=== PATIENT | female | born 1980 ===

== ENCOUNTER 2023-05-11 13:25 | Inpatient (IN) | payer SELFPAY ==
[~2023-05-11] VITALS: Ht 144.8 cm; Wt 38.6 kg
[2023-05-11 13:58] LABS: HEMOGLOBIN 11.3 g/dl (12.5-16.0); MEAN CELL VOLUME 89 fl (80.0-100.0); MEAN CORPUSCULAR HEMOGLOBIN 29 pg (27-31); MEAN CORPUSCULAR HGB CONC 33 g/dl (33.0-37.0); MEAN PLATELET VOLUME 10.2 fl (7.4-10.4); PLATELET COUNT 143 K/mm3 (130-400); RED BLOOD COUNT 3.88 M/mm3 (4.10-5.30); REDCELL DISTRIBUTION WIDTH-CV 12.3 % (11.5-14.5)
[2023-05-11 14:04] LABS: HEMATOCRIT 34.4 % (37.0-47.0)
[2023-05-11 14:16] LABS: ALANINE AMINOTRANSFERASE 32 U/L (0-55); ALKALINE PHOSPHATASE 51 U/L (40-150); ANION GAP 15 mmol/L (7-16); AST,SGOT 79 U/L (5-34); BILIRUBIN,TOTAL 0.6 mg/dL (0.2-1.2); BLOOD UREA NITROGEN 13 mg/dL (7-19); C-REACTIVE PROTEIN 0.72 mg/dL (0.00-0.50); CALCIUM 8.6 mg/dL (8.4-10.2); CARBON DIOXIDE 17 mmol/L (22-29); CHLORIDE 99 mmol/L (98-107); CREATININE, serum 0.92 mg/dL (0.57-1.11); GLUCOSE 108 mg/dL (70-99); LIPASE 72 U/L (8-78); SODIUM 131 mmol/L (136-145); TOTAL PROTEIN 7.6 gm/dL (6.2-8.1)
[2023-05-11 14:21] LABS: BAND 14 % (0-10); LYMPHOCYTE 28 % (20.0-51.0); NEUTROPHILS 50 % (42.0-75.2)
[2023-05-11 14:22] LABS: HYPOCHROMIA 1+; PLATELET ESTIMATE NORMAL (NORMAL)
[2023-05-11 14:24] LABS: TROPONIN-I < 0.010 ng/mL (0.00-0.033)
[2023-05-11 14:53] LABS: COLLECTION METHOD CLEAN CATCH
[2023-05-11 15:09] LABS: URINE APPEARANCE Cloudy (CLEAR/HAZY); URINE BLOOD 3+ (NEGATIVE); URINE COLOR Red (YELLOW); URINE GLUCOSE Negative (NEGATIVE); URINE KETONE 1+ (NEGATIVE); URINE NITRATE Negative (NEGATIVE); URINE PROTEIN(semi-quant) 2+ (NEGATIVE); URINE UROBILINOGEN 0.2 E.U/dL (0.2-1.0)
[2023-05-11 15:10] LABS: MUCOUS Present (NOT PRESENT); URINE BACTERIA Moderate /hpf (NONE SEEN); URINE RBC >50 /hpf (0-2)
[2023-05-11] MEDS ORDERED: AMOXICILLIN 8751 TAB PO (15:42)
[2023-05-11 15:54] LABS: TRICYCLIC ANTIDEPRESS URINE NEGATIVE
[2023-05-11 17:56] LABS: MONOSCREEN NEGATIVE
[2023-05-11 18:00] VITALS: BP_SYST 94
[2023-05-11 18:10] VITALS: BP 94/59; PULSE 67; TEMP 97.5
--- NOTE | 2023-05-11 18:26 | NUR ---
Patient arrived to te medical unit alert and oriented x 4, sof BP 90's, getting fluids per orders. States she has dry throat and chills. Assessment intake completed.
[2023-05-11 20:51] VITALS: BP 90/60; PULSE 78; TEMP 98.2
[2023-05-11 21:00] VITALS: BP_SYST 90
[2023-05-12] VITALS (12 sets, daily range): BP systolic 90–98; BP diastolic 53–61; PULSE 71–93; TEMP 97.8–101.4
[2023-05-12 08:11] LABS: ALBUMIN 1.9 gm/dL (3.5-5.0); BILIRUBIN,TOTAL 0.5 mg/dL (0.2-1.2); CALCIUM 7.5 mg/dL (8.4-10.2); CREATININE, serum 0.67 mg/dL (0.57-1.11); MEAN CELL VOLUME 88 fl (80.0-100.0); MEAN CORPUSCULAR HGB CONC 33 g/dl (33.0-37.0); MEAN PLATELET VOLUME 10.4 fl (7.4-10.4); PLATELET COUNT 105 K/mm3 (130-400); POTASSIUM 3.7 mmol/L (3.5-4.5); RED BLOOD COUNT 2.86 M/mm3 (4.10-5.30); REDCELL DISTRIBUTION WIDTH-CV 12.4 % (11.5-14.5)
[2023-05-12 08:15] LABS: HEMATOCRIT 25.2 % (37.0-47.0); HEMOGLOBIN 8.3 g/dl (12.5-16.0); MEAN CORPUSCULAR HEMOGLOBIN 29 pg (27-31)
[2023-05-12 08:40] LABS: BAND 17 % (0-10); LYMPHOCYTE 37 % (20.0-51.0); NEUTROPHILS 42 % (42.0-75.2)
[2023-05-12 08:41] LABS: HYPOCHROMIA 1+; PLATELET ESTIMATE DECREASED (NORMAL)
[2023-05-12 09:29] LABS: RETIC # 0.01 M/mm3 (0.02-0.16); RETIC % 0.4 % (0.5-3.52)
[2023-05-12 10:26] LABS: HIV 1/2 Antibodies Non-Reactive; HIV-1p24 Antigen Non-Reactive
--- NOTE | 2023-05-12 11:35 | NUR ---
Patient is resting in bed, state she feels the same. Continues getting antibiotics and fluids per orders. Assessment completed, no further needs at this time. Call light within reach.
--- NOTE | 2023-05-12 13:16 | NUR ---
Jesse from [facility] requested documents to be faxed. Soil Analyst, Cylindrical Mixer RN, clouded all imaging and faxed applicable documents successfully at [phone].
--- NOTE | 2023-05-12 14:31 | NUR ---
salvage mend worker contacted patient via telephone due to isolation protocol. SW asked patient if she was able to speak via telephone and patient stated that would be okay. Patient reports she lives in [place] with her , Clifton, P# [phone]. PCP is Leighton Judd, pharmacy is [facility]. Patient does not have insurance. Kathy from [employer] is involved. Patient does not have a DPOA-HC and did not wish to complete one at this time. Patient reports she does not have any DME and is independent with [facility]. Patient's is able to transport her to and from appointments. Patient has no concerns about returning home and expressed she wants to go home at discharge. Discharge Plan: Home
--- NOTE | 2023-05-12 20:00 | NUR ---
Initial shift assessment done- warehouse unloader up on floor and stated pt is being transferred tonight to [facility]-- EMS will be here in about an hour. Pt temp 101.4-- Tylenol given at this time,, Denies pain/denies SOB, just states so, so weak,, did get up to bathroom with 2 assists/very weak. IV fluids of LR at 150cc/hr.
--- NOTE | 2023-05-12 21:33 | NUR ---
EMS arrived- transporting pt to [facility], will call report at this time- temp 100.0, IV fludis of LR at 150cc/hr infusing
--- NOTE | 2023-05-12 21:50 | NUR ---
REport given to nurse at [facility]--
[2023-05-13 14:53] LABS: TB GOLD INTERPRETATION Negative (Negative)
== END 2023-05-12 21:45 | disposition short-term general hospital (02) | DRG 872 ==
LOC: COL.ER 13:25 → MEDICAL 17:11
PROVIDERS: Emergency Medicine; Internal Medicine; Physician Assistant; ADMIT Internal Medicine
DX: A41.9 Sepsis, unspecified organism (principal); E87.1 Hypo-osmolality and hyponatremia; D61.818 Other pancytopenia; J90 Pleural effusion, not elsewhere classified; E87.6 Hypokalemia; M32.9 Systemic lupus erythematosus, unspecified; M79.10 Myalgia, unspecified site; E86.1 Hypovolemia; Z20.822 Contact with and (suspected) exposure to COVID-19; R93.89 Abnormal findings on diagnostic imaging of other specified body structures; J02.9 Acute pharyngitis, unspecified; Z87.891 Personal history of nicotine dependence; Z23 Encounter for immunization
CPT/HCPCS: J1650; J2543; J7120; Q9967